=== PATIENT | female | born 1965 | race Caucasian/White ===

== ENCOUNTER 2025-08-11 08:04 | Emergency (ER) | payer OTHER, SELFPAY ==
[2025-08-11] VITALS (7 sets, daily range): BP systolic 183–184; BP diastolic 88–98; PULSE 73–89; RESP 12–18; TEMP 37; O2SAT 96–97
--- NOTE | ~2025-08-11 | XR_ITS ---
Examination: XR chest 2V Clinical History: chest pain X 1.5 WEEKS, SMOKER, PAIN IN CENTER OF CHEST Comparison: CT chest abdomen pelvis 1 hour prior Technique: PA and Lateral Findings: Cardiomediastinal silhouette normal size and configuration. Lungs clear. No acute bony abnormality. IMPRESSION: 1. No acute cardiopulmonary findings. Reviewed, dictated and finalized at location R.
--- NOTE | ~2025-08-11 | CT_ITS ---
EXAMINATION: CT chest abdomen pelvis w con DATE: 08/11/2025 09:10 INDICATION: Chest pain. Epigastric abdominal pain. TECHNIQUE: Computed tomography (CT) of the chest, abdomen, and pelvis was performed with 100 mL Omnipaque 350 intravenous contrast. Automated exposure control and iterative reconstruction technique were employed. The dose-length product was 508.06 mGy-cm. COMPARISON: None FINDINGS: CHEST CT: There are a few nodules in the lungs measuring up to 4 mm in right upper lobe, likely benign. No pleural effusion. The heart size is normal. There are coronary artery calcifications. No pericardial effusion. There is mild thoracic spondylosis. There is mild chronic anterior wedging of T11 and T12 vertebral bodies. ABDOMEN/PELVIS CT: The liver, gallbladder, spleen, pancreas, and adrenal glands are normal. There are cysts in the kidneys measuring up to 12 mm on the right. There is diverticulosis of the colon without evidence of diverticulitis. There are no dilated loops of bowel. The appendix is normal. There are no pathologically e nlarged lymph nodes. There is no free intraperitoneal fluid. There is mild lumbar spondylosis. IMPRESSION: 1. No etiology for the patient's symptoms. Reviewed, dictated and finalized at location E.
--- NOTE | 2025-08-11 08:06 | ECG_ITS ---
Test Date: 2025-08-11 08:12:26 Measurements Intervals Baker Rate: 83 P: 55 NE: 173 QRS: 39 QRSD: 90 T: 40 QT: 366 QTc: 432 Interpretive Statements SINUS RHYTHM BORDERLINE ST-T WAVE ABNORMALITY- INFERIOR LEADS BASELINE ARTIFACT- I, II, III, AVR, AVL, AVF BORDERLINE ECG No previous ECG available for comparison Electronically Signed On 08-11-2025 12:57:21 CDT by Hayes Strickland D.O.
--- OUTSIDE RECORDS SUMMARY | 2025-08-11 08:10 | XMS_ITS | Clinical Summary ---
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 Active pravastatin (PRAVACHOL) 10 MG Tablet Take 10 mg by mouth daily. Active amLODIPine (NORVASC) 10 MG Tablet Take 10 mg by mouth daily. Active citalopram (CELEXA) 20 MG Tablet Take 20 mg by mouth daily. Active traMADol (ULTRAM) 50 MG Tablet Take 1 Tab by mouth every 6 hours as needed for Pain. 10 Tab 0 02/08/2017 Active Active Problems Problem Noted Date Diagnosed Date HTN (hypertension) Immunizations Immunization Administration Dates Next Due Tetanus Toxoid, Unspecified Formulation 10/16/19 14 Social History Tobacco Use Types Packs/Day Years Used Date Smoking Tobacco: Every Day Cigarettes Alcohol Use Standard Drinks/Week Comments No 0 (1 standard drink = 0.6 oz pur e alcohol) Comments No Sex and Gender Information Value Date Recorded Sex Assigned at Not on file Legal Sex Female 11:24 PM CDT Gender Identity Not on file Sexual Orientation Not on file Last Filed Vital Signs Vital Sign Reading Time Taken Comments Blood Pressure 140/92 02/08/2017 11:35 AM CDT Pulse 78 02/08/2017 11:35 AM CDT Temperature 37.2 C (98.9 F) 02/08/2017 11:35 AM CDT Respiratory Rate 18 02/08/2017 11:35 AM CDT Oxygen Saturation 96% 02/08/2017 11:35 AM CDT Inhaled Oxygen Concentration - - Weight 65.8 kg (145 lb) 02/08/2017 11:35 AM CDT Height 157.5 cm (5' 2) 02/08/2017 11:35 AM CDT Body Mass Index 26.52 02/08/2017 11:35 AM CDT Plan of Treatment Health Maintenance Due Date Last Done Comments Hepatitis C Virus (HCV) Screening 1967 TdaP Immunization 1967 Hepatitis B Immunization (1 of 3 - 19+ 3-dose series) 1986 Pap Smear 1988 Cervical Cancer Screening (CCS) 1997 HPV/Cotest 1997 Cologuard 2012 Colonoscopy 2012 Colorectal Cancer Screening 2012 Immunochemical Fecal Occult Blood 2012 Pneumococcal Immunization (5 0+ years) (1 of 1 - PCV) 2017 Zoster Immunization (1 of 2) 2017 Influenza Immunization (#1) 2025 SARS-COV-2 Immunization (1 - season) 2025 Respiratory Syncytial Virus (RSV) Immunization (Adult) (1 - 1-dose 75+ series) 2042 Human Papillomavirus (HPV) Immunization Aged Out No longer eligible b ased on patient's age to complete this topic Meningococcal Immunization (ACWY) Aged Out No longer eligible based on patient's age to complete this topic Rotavirus Immunization Aged Out No lo nger eligible based on patient's age to complete this topic Care Teams Cutting Machine Operator Helper Relationship Specialty Start Date End Date Negar Turner MD [address] [place] [address] PCP - General Internal Medicine 02/08/17
[2025-08-11 08:23] LABS: Hematocrit 50.5 % (37.0-47.0); Hemoglobin 16.9 g/dL (12.0-15.0); Immature Granulocyte Percent A 0.3 % (0-0.5); Lymphocytes Absolute Auto 1.42 K/mm3 (0.9-3.2); Mean Corpuscular HGB Conc 33.5 g/dl (32-36); Mean Corpuscular Hemoglobin 32.2 pg (26-34); Mean Corpuscular Volume 96.2 fl (80-100); Nucleated Red Blood Cells Absolute Auto 0.000 K/mm3 (0.0-0.012); Nucleated Red Blood Cells Perc 0.0 % (0.0-0.2); Platelet Count Result 302 k/mm3 (150-375); Red Blood Count 5.25 M/mm3 (4.2-5.4); White Blood Count 5.9 K/mm3 (4.5-10.0)
[2025-08-11] MEDS: KETOROLAC 30 MG/ML VIAL (*BKC) IV PUSH (08:24)
[2025-08-11] MEDS: IPRATROPIUM 0.5 MG/ALBUTEROL SULFATE 2.5 MG (BASE) AMPUL.NEB 3 ML INHALATION (08:29)
[2025-08-11 08:34] LABS: Alanine Aminotransferase 14 U/L (6-35); Albumin Level 4.6 g/dL (3.5-5.1); Alkaline Phosphatase 124 U/L (38-126); Anion Gap 9 mmol/L (4-12); Aspartate Amino Transferase 25 U/L (14-36); Bilirubin,Total 0.4 mg/dL (0.2-1.3); Blood Urea Nitrogen 16 mg/dL (7-17); Calcium 9.3 mg/dL (8.4-10.2); Carbon Dioxide 27 mmol/L (22-30); Chloride 105 mmol/L (98-107); Estimated CRCL calculation 62 ml/min; Estimated Glomerular Filt Rate > 60; Glucose 104 mg/dL (65-110); Lipase 633 U/L (23-300); Potassium 4.1 mmol/L (3.4-5.0); Sodium 141 mmol/L (137-145); Total Protein 8.0 g/dL (6.3-8.2)
--- NOTE | 2025-08-11 08:34 | ED_ITS ---
HPI - Chest Pain General Chief Complaint: Chest Pain Stated Complaint: chest pain since 17 Time Seen by Provider: 08/11/25 08:10 Source: patient, RN notes reviewed and old records reviewed Mode of arrival: ambulatory Limitations: no limitations History of Present Illness HPI narrative: This is a 60 year old female smoker who presents for evaluation of chest pain. Patient states 2 weeks ago she was pushing a chair and she heard a pop. She states she also heard a pop when she was laying in bed. She developed pain 10 days ago and she reports she continues to have pain. Her pain is constant and worse with movement. She reports it hurts to breath. She denies trauma. She denies vomiting, abdominal pain, fever Related Data Allergies Allergy/AdvReac Type Severity Reaction Status Date / Time No Known Allergies Allergy Verified 08/11/25 08:16 [facility] Past Medical History Medical History (Updated 08/11/25 @ 20:23 by Keeley Lantigua MD) Emphysema/COPD Social History Social History (Updated 08/11/25 @ 20:24 by Keeley Lantigua MD) Smoking packs per day: 1 Smoking cigarettes per day: 20.0 Exam 2 Narrative: GENERAL: Well-appearing, well-nourished, and in no acute distress. HEAD: Normocephalic, atraumatic EYES: PERRLA and EOMI, conjunctiva clear without discharge NOSE: Nares clear, no rhinorrhea or epistaxis THROAT:Mucous membranes moist, Oropharynx normal without erythema, exudate, peritonsillar swelling or fluctuance NECK: Supple, without lymphadenopathy or mass RESPIRATORY: No respiratory distress, Airway patent, Respirations non-labored, there is reproducible chest tenderness, mild expiratory wheezing HEART: Regular rate and rhythm. No murmur heard. Normal peripheral pulses. ABDOMEN: Soft, nontender, nondistended, normal active bowel sounds. No masses. No rebound or guarding, No organomegaly. EXTREMITIES: No edema, normal strength with full range of motion. SKIN: Warm, dry, normal color without rash NEURO: Alert and oriented x3. CN 2-12 grossly intact. No focal deficits. PSYCH: Normal mood and affect. Course Reevaluation(s) Reevaluation #1: I Discussed with patient that labs and imaging have been unremarkable. She may have subluxation cartilage. I Discussed she will be discharged with pain management Date: 08/11/25 Time: 10:10 Vital Signs Vital signs: Vital Signs Temperature 98.6 F 08/11/25 08:07 Pulse Rate 89 08/11/25 08:07 Respiratory Rate 18 08/11/25 08:07 Blood Pressure 184/98 H 08/11/25 08:07 Pulse Oximetry 96 08/11/25 08:07 Oxygen Delivery Room Air 08/11/25 08:07 Temperature 98.6 F 08/11/25 08:07 Pulse Rate 73 08/11/25 09:23 Respiratory Rate 16 08/11/25 09:23 Blood Pressure 183/88 H 08/11/25 09:23 Pulse Oximetry 97 08/11/25 09:24 Oxygen Delivery Room Air 08/11/25 09:24 MDM - Chest Pain MDM Narrative Medical decision making narrative: PAtient came to ER with chest pain that is likely skeletal. chest pain protocol placed with triage. No ischemia seen on EKG. Patient is hypertensive in ER . Lipase elevated to 600s and patient had mild epigastric tenderness. CT placed to evaluation for aortic aneurysm and pancreatitis. CT is negative. PAtient was given toradol for pain. PAtient stable for discharge as chest pain is not aginal in nature. PAtient with low risk heart score Differential Diagnosis Differential diagnosis: Likely fracture of rib, atypical chest pain, costochondritis and chest pain Medical Records Data Attestation: I reviewed the patient's medical records. Lab Data Attestation: I reviewed the patient's lab results. 08/11/25 08:16 08/11/25 08:16 Labs: Lab Results 08/11/25 Range/Units 08:16 WBC 5.9 (4.5-10.0) K/mm3 RBC 5.25 (4.2-5.4) M/mm3 Hgb 16.9 H (12.0-15.0) g/dL Hct 50.5 H (37.0-47.0) % MCV 96.2 (80-100) fl MCH 32.2 (26-34) pg MCHC 33.5 (32-36) g/dl RDW 13.0 (11.5-14.5) % Plt Count 302 (150-375) k/mm3 MPV 9.3 (7.4-10.4) fl Immature Gran % (Auto) 0.3 (0-0.5) % Neut % (Auto) 62.0 (45.5-73.1) % Lymph % (Auto) 24.1 (18.3-44.2) % [place] % (Auto) 9.2 H (2.6-8.5) % Eos % (Auto) 2.7 (0-4.4) % Baso % (Auto) 1.7 H (0.2-1.2) % Lymph # (Auto) 1.42 (0.9-3.2) K/mm3 [place] # (Auto) 0.5 (0.1-0.6) K/mm3 Eos # (Auto) 0.2 (0-0.3) K/mm3 Baso # (Auto) 0.1 (0.0-0.1) K/mm3 Abs Immat Gran (auto) 0.02 (0.00-0.031) K/mm3 Absolute Neuts (auto) 3.6 (1.3-6.7) K/mm3 Absolute Nucleated RBC 0.000 (0.0-0.012) K/mm3 Nucleated RBC % 0.0 (0.0-0.2) % PT 11.6 (11.1-14.7) Seconds INR 0.8 APTT 26.1 (22.3-36.8) Seconds Sodium 141 (137-145) mmol/L Potassium 4.1 (3.4-5.0) mmol/L Chloride 105 (98-107) mmol/L Carbon Dioxide 27 (22-30) mmol/L Anion Gap 9 (4-12) mmol/L BUN 16 (7-17) mg/dL Creatinine 0.81 (0.7-1.0) mg/dL Estim Creat Clear Calc 62 ml/min Estimated GFR > 60 (59 - ) Glucose 104 (65-110) mg/dL Calcium 9.3 (8.4-10.2) mg/dL Total Bilirubin 0.4 (0.2-1.3) mg/dL AST 25 (14-36) U/L ALT 14 (6-35) U/L Alkaline Phosphatase 124 (38-126) U/L Troponin I < 0.012 (0.000-0.034) ng/mL Total Protein 8.0 (6.3-8.2) g/dL Albumin 4.6 (3.5-5.1) g/dL Lipase 633 H (23-300) U/L Imaging Data Radiologist's impression: ITS Impressions Chest/Abdomen/Pelvis CT 08/11/25 09:12 IMPRESSION: 1. No etiology for the patient's symptoms. Chest X-Ray 08/11/25 09:54 IMPRESSION: 1. No acute cardiopulmonary findings. ECG Data EKG #1: Attestation: I personally reviewed and interpreted this ECG as follows: ECG completion date: 08/11/25 ECG completion time: 08:12 EKG Interpretation: normal rate (83), sinus rhythm, non-specific ST changes and NL axis Discharge Plan Discharge Clinical Impression: Atypical chest pain, Bronchitis Patient Disposition: Home Condition: Stable Instructions: Antibiotic Form, Chest Pain (ED), Chest Wall Pain (ED) Additional Instructions: Use your inhaler every 4 to 6 hours for wheezing. Take ibuprofen and tylenol for pain. Patient Language: [place] Prescriptions: New ibuprofen 400 mg tablet 400 mg PO TID PRN (Reason: pain) Qty: 14 0RF Follow-up/Referrals: UNKNOWN,DOCTOR [Non-Staff] Quality HEART score for chest pain patients History: slightly suspicious ECG: normal Age: > 45 and < 65 years Risk factors: 1 or 2 risk factors Troponin: < or = to 1x normal limit Heart score: 2
[2025-08-11 08:37] LABS: INR 0.8; Prothrombin Time 11.6 Seconds (11.1-14.7)
[2025-08-11 08:38] LABS: Partial Thromboplastin Time 26.1 Seconds (22.3-36.8)
[2025-08-11 08:45] LABS: Troponin I < 0.012 ng/mL (0.000-0.034)
== END 2025-08-11 10:27 | disposition home or self-care (01) ==
PROVIDERS: Emergency Provider General Practice; PCP Internal Medicine
DX: J40 Bronchitis, not specified as acute or chronic (principal); R07.89 Other chest pain; J43.9 Emphysema, unspecified; F17.210 Nicotine dependence, cigarettes, uncomplicated; R94.31 Abnormal electrocardiogram [ECG] [EKG]
CPT/HCPCS: 36415; 71046; 71260; 74177; 80053; 83690; 84484; 85025; 85610; 85730; 93005; 94640; 96374; 99284; J1885; J7512; Q9967